=== PATIENT | female | born 1935 | race Caucasian/White ===

== ENCOUNTER 2018-07-17 06:48 | Emergency (ER) | payer MEDICARE, BC | END 2018-07-17 08:44 | disposition home or self-care (01) | LOC: NAV ERS 06:48 | DX: J06.9 Acute upper respiratory infection, unspecified (principal); Z87.891 Personal history of nicotine dependence; I10 Essential (primary) hypertension | CPT/HCPCS: 87081; 87430; 87804; 99283 ==

== ENCOUNTER 2018-12-27 21:36 | Emergency (ER) | payer MEDICARE, BC ==
[2018-12-27] MEDS ORDERED: cloNIDine 0.1 MG TAB ONE (22:59)
== END 2018-12-27 23:38 | disposition home or self-care (01) ==
LOC: NAV ERS 21:36
DX: I10 Essential (primary) hypertension (principal); F17.210 Nicotine dependence, cigarettes, uncomplicated; Z79.899 Other long term (current) drug therapy
CPT/HCPCS: 99283

== ENCOUNTER 2020-06-27 18:32 | Emergency (ER) | payer MEDICARE, BC ==
[2020-06-27] MEDS ORDERED: cloNIDine 0.1 MG TAB ONE (19:43)
[2020-06-27] MEDS ORDERED: Ketorolac Tromethamine 30 MG/ML VIAL ONE (19:43)
[2020-06-27 20:08] LABS: Mean Corpuscular HGB CONC 32.1 g/dL (32.0-36.0); Mean Corpuscular Hemoglobin 28.6 pg (27.0-31.0); Mean Corpuscular Volume 89.1 fL (78.0-98.0); Mean Platelet Volume 10.1 fL (7.4-10.4); Platelet Count 147 thou/uL (130-400); RBC Distribution Width 12.9 % (11.5-14.5); Red Blood Cell (RBC) Count 4.55 mill/uL (4.20-5.40); White Blood Cell (WBC) Count 4.6 thou/uL (4.8-10.8)
[2020-06-27 20:09] LABS: #Basophils 0.1 thou/uL (0.0-0.2); #Eosinphils 0.1 thou/uL (0.0-0.7); #Lymphocytes 1.6 thou/uL (1.20-3.40); #Monocytes 0.5 thou/uL (0.11-0.59); #Neutrophils 2.4 thou/uL (1.40-6.50); %Basophils 1.1 % (0.0-1.0); %Eosinophils 2.1 % (0.0-10.0); %Lymphocytes 34.3 % (21.0-51.0); %Monocytes 10.1 % (0.0-10.0); %Neutrophils 52.5 % (42.0-75.0)
[2020-06-27 20:11] LABS: Bilirubin Negative (Negative); Blood, Urine Small (Negative); Clarity Clear (Clear); Glucose, Urine (Dipstick) Negative (Negative); Ketone, Urine Negative (Negative); Leukocyte Negative (Negative); Nitrite Negative (Negative); Protein, Urine (Dipstick) Negative (Neg-Trace); Urobilinogen 0.2 mg/dL (Less than 2)
[2020-06-27 20:12] LABS: Bacteria/HPF None Seen HPF (None Seen); RBC/HPF 0-3 HPF (0-3); Squamous Epithelial None Seen HPF (0-3); WBC/HPF None Seen HPF (0-3)
[2020-06-27 20:13] LABS: ALT (SGPT) 17 U/L (8-55); AST (SGOT) 26 U/L (5-34); Albumin 4.2 g/dL (3.4-4.8); Alkaline Phosphatase 59 U/L (40-110); Anion Gap 11 mmol/L (10-20); BUN (Urea Nitrogen) 13 mg/dL (9.8-20.1); Bilirubin, Total 0.3 mg/dL (0.2-1.2); Calc. Creatinine Clearance 0 mL/min (70-130); Calcium 8.9 mg/dL (7.8-10.44); Carbon Dioxide 28 mmol/L (23-31); Chloride 103 mmol/L (98-107); Estimated GFR-MDRD 71; Glucose 94 mg/dL (83-110); Potassium 3.4 mmol/L (3.5-5.1); Protein, Total 7.2 g/dL (6.0-8.3); Sodium 139 mmol/L (136-145)
[2020-06-27 20:14] LABS: Platelet Morphology Comment Appears Adequate; RBC Morphology Normal
--- NOTE | 2020-06-27 21:10 | CT ---
HEAD CT WITHOUT CONTRAST: 06/27/20 HISTORY: Headache and hypertension. COMPARISON: 12/31/18. FINDINGS: No parenchymal hemorrhage. No extra-axial hematoma. No midline shift. Basilar cisterns are patent. Age appropriate brain volume. Cortical nelson-white bruno er differentiation is preserved. Minimal chronic small vessel ischemic change of the white matter. St able configuration of ventricular system. Calvarium is intact. Adequate aeration of the sinuses and m astoid air cells. IMPRESSION: No acute intracranial process. POS: PPP
== END 2020-06-27 20:45 | disposition home or self-care (01) ==
LOC: NAV ERS 18:32
DX: H92.01 Otalgia, right ear (principal); I10 Essential (primary) hypertension; Z87.891 Personal history of nicotine dependence; Z79.899 Other long term (current) drug therapy; Z79.82 Long term (current) use of aspirin
CPT/HCPCS: 70450; 80053; 81003; 81015; 85025; 96374; J1885

== ENCOUNTER 2021-03-08 09:48 | Emergency (ER) | payer MEDICARE, BC ==
[2021-03-09 11:46] LABS: SARS-CoV-2 PCR by NAA DETECTED (NotDetected)
== END 2021-03-08 11:15 | disposition home or self-care (01) ==
LOC: NAV ERS 09:48
DX: U07.1 COVID-19 (principal); I10 Essential (primary) hypertension; Z87.891 Personal history of nicotine dependence; Z79.82 Long term (current) use of aspirin; Z79.899 Other long term (current) drug therapy
CPT/HCPCS: 71045; U0003; U0005; 99283